=== PATIENT | female | born 1995 | race African-American/Black ===

== ENCOUNTER 2019-04-12 14:14 | Emergency (ER) | payer OTHER ==
[~2019-04-12] VITALS: Ht 167.6 cm; Wt 73.6 kg
[2019-04-12] MEDS ORDERED: NS 1,000 ML IV ONE (15:15)
[2019-04-12 15:29] LABS: BASO # 0.1 10^3/uL (0.0-0.2); BASO % 0.6 % (0.0-1.0); EOS # 0.1 10^3/uL (0.0-0.5); EOS % 0.6 % (0.0-3.0); HEMATOCRIT 40.5 % (36.0-47.0); HEMOGLOBIN 13.2 g/dl (12.0-15.5); LYMPH # 2.3 10^3/uL (1.5-5.0); LYMPH % 27.2 % (24.0-44.0); MEAN CORPUSCULAR HEMOGLOBIN 28.9 pg (27.0-33.0); MEAN CORPUSCULAR HGB CONC 32.6 g/dl (32.0-36.5); MEAN CORPUSCULAR VOLUME 88.8 fl (80.0-96.0); MONO # 0.5 10^3/uL (0.0-0.8); MONO % 5.6 % (0.0-5.0); NEUTROPHILS # 5.6 10^3/uL (1.5-8.5); NEUTROPHILS % 65.8 % (36.0-66.0); PLATELET COUNT, AUTOMATED 296 10^3/uL (150-450); RED BLOOD COUNT 4.56 10^6/uL (4.00-5.40); WHITE BLOOD COUNT 8.5 10^3/uL (4.0-10.0)
[2019-04-12] MEDS ORDERED: KETOROLAC 30 MG/ML VIAL (J1885) IV ONE (15:45)
--- NOTE | 2019-04-12 15:46 | REP ---
Clinical: Shortness of breath and left-sided chest pain . Comparison: None . Technique: PA and lateral. Findings: The mediastinum and cardiac silhouette are normal. The lung sears are clear and without acute consolidation, effusion, or pneumothorax. The skeletal structures are intact and normal. Impression: 1. No acute cardiopulmonary process. Electronically Signed by Isauro Montiel MD 04/12/2019 03:37 P
[2019-04-12 15:56] LABS: INFLUENZA A AMPLIFICATION NEGATIVE (NEGATIVE); INFLUENZA B AMPLIFICATION NEGATIVE (NEGATIVE)
[2019-04-12 15:58] LABS: BLOOD UREA NITROGEN 10 MG/DL (7-18); CALCIUM LEVEL 8.8 MG/DL (8.5-10.1); CARBON DIOXIDE LEVEL 27 MEQ/L (21-32); CHLORIDE LEVEL 106 MEQ/L (98-107); CREATININE FOR GFR 0.83 MG/DL (0.55-1.30); GLOMERULAR FILTRATION RATE > 60.0 (>60); GLUCOSE, FASTING 78 MG/DL (70-100); POTASSIUM SERUM 4.1 MEQ/L (3.5-5.1); SODIUM LEVEL 139 MEQ/L (136-145)
[2019-04-12] MEDS ORDERED: CLAR10CA3 PO (16:28)
[2019-04-12] MEDS ORDERED: FLON1SPR NARES (16:28)
[2019-04-12 17:06] VITALS: BP 122/68
== END 2019-04-12 17:07 | disposition home or self-care (01) ==
LOC: M ED 14:14
DX: J30.9 Allergic rhinitis, unspecified (principal); B34.9 Viral infection, unspecified
CPT/HCPCS: 71046; 80048; 84702; 85025; 87502; 96361; 96374; 99284; J1885

== ENCOUNTER 2019-05-14 17:40 | Emergency (ER) | payer OTHER ==
[~2019-05-14] VITALS: Ht 167.6 cm; Wt 74.5 kg
[~2019-05-14 17:40] MED LIST: CLAR10CA3 PO; FLON1SPR NARES
[2019-05-14 18:41] LABS: BASO # 0.1 10^3/uL (0.0-0.2); BASO % 0.7 % (0.0-1.0); EOS # 0.3 10^3/uL (0.0-0.5); EOS % 3.4 % (0.0-3.0); HEMATOCRIT 39.9 % (36.0-47.0); HEMOGLOBIN 13.4 g/dl (12.0-15.5); LYMPH # 2.6 10^3/uL (1.5-5.0); LYMPH % 31.8 % (24.0-44.0); MEAN CORPUSCULAR HEMOGLOBIN 29.4 pg (27.0-33.0); MEAN CORPUSCULAR HGB CONC 33.6 g/dl (32.0-36.5); MEAN CORPUSCULAR VOLUME 87.5 fl (80.0-96.0); MONO # 0.4 10^3/uL (0.0-0.8); MONO % 5.3 % (0.0-5.0); NEUTROPHILS # 4.8 10^3/uL (1.5-8.5); NEUTROPHILS % 58.7 % (36.0-66.0); PLATELET COUNT, AUTOMATED 333 10^3/uL (150-450); RED BLOOD COUNT 4.56 10^6/uL (4.00-5.40); WHITE BLOOD COUNT 8.3 10^3/uL (4.0-10.0)
[2019-05-14 19:12] LABS: ALBUMIN 3.6 GM/DL (3.2-5.2); ALT/SGPT 18 U/L (12-78); BILIRUBIN,DIRECT < 0.1 MG/DL (0.0-0.2); BILIRUBIN,TOTAL 0.2 MG/DL (0.2-1.0); BLOOD UREA NITROGEN 14 MG/DL (7-18); CALCIUM LEVEL 9.3 MG/DL (8.5-10.1); CARBON DIOXIDE LEVEL 28 MEQ/L (21-32); CHLORIDE LEVEL 103 MEQ/L (98-107); CREATININE FOR GFR 0.93 MG/DL (0.55-1.30); GLOMERULAR FILTRATION RATE > 60.0 (>60); GLUCOSE, FASTING 89 MG/DL (70-100); LIPASE 89 U/L (73-393); POTASSIUM SERUM 4.1 MEQ/L (3.5-5.1); SODIUM LEVEL 137 MEQ/L (136-145); TOTAL PROTEIN 7.7 GM/DL (6.4-8.2)
[2019-05-14 19:21] LABS: HCG, SERUM QUALITATIVE NEGATIVE (NEGATIVE)
[2019-05-14] MEDS ORDERED: CVS400CA PO (20:46)
[2019-05-14] MEDS ORDERED: ZOFR4TAB16 PO (20:51)
[2019-05-14 21:04] VITALS: BP 115/56
== END 2019-05-14 21:04 | disposition home or self-care (01) ==
LOC: M ED 17:40
DX: N94.4 Primary dysmenorrhea (principal); Z32.02 Encounter for pregnancy test, result negative; Z79.899 Other long term (current) drug therapy

== ENCOUNTER 2019-06-27 22:15 | Emergency (ER) | payer OTHER ==
[~2019-06-27] VITALS: Ht 167.6 cm; Wt 80.6 kg
[~2019-06-27 22:15] MED LIST changes: +CVS400CA PO; +ZOFR4TAB16 PO
[2019-06-28] MEDS ORDERED: LIDOCAINE 5% (LIDODERM) PATCH TD ONE
[2019-06-28] MEDS ORDERED: ACETAMINOPHEN 500 MG TAB PO ONE
[2019-06-28 00:11] LABS: BASO % 0.4 % (0.0-1.0); EOS # 0.2 10^3/uL (0.0-0.5); EOS % 2.1 % (0.0-3.0); HEMATOCRIT 41.1 % (36.0-47.0); LYMPH # 2.6 10^3/uL (1.5-5.0); LYMPH % 37.7 % (24.0-44.0); MEAN CORPUSCULAR HEMOGLOBIN 27.6 pg (27.0-33.0); MEAN CORPUSCULAR HGB CONC 31.6 g/dl (32.0-36.5); MEAN CORPUSCULAR VOLUME 87.3 fl (80.0-96.0); MONO # 0.4 10^3/uL (0.0-0.8); MONO % 6.2 % (0.0-5.0); NEUTROPHILS # 3.7 10^3/uL (1.5-8.5); NEUTROPHILS % 52.9 % (36.0-66.0); PLATELET COUNT, AUTOMATED 274 10^3/uL (150-450); RED BLOOD COUNT 4.71 10^6/uL (4.00-5.40)
[2019-06-28 00:36] LABS: ERYTHROCYTE SEDIMENTATION RATE 10 mm/hr (0-20)
[2019-06-28 01:09] VITALS: BP 129/60
[2019-06-28] MEDS ORDERED: **NOTE PATIENT COMMENT** MISC XX ONE (12:00)
== END 2019-06-28 01:10 | disposition home or self-care (01) ==
LOC: M ED 22:15
DX: G89.29 Other chronic pain (principal); M54.5 Low back pain; M25.551 Pain in right hip; M25.552 Pain in left hip; Z87.81 Personal history of (healed) traumatic fracture; Z79.899 Other long term (current) drug therapy

== ENCOUNTER 2019-07-09 10:38 | Emergency (ER) | payer OTHER ==
[~2019-07-09] VITALS: Ht 167.6 cm; Wt 88.7 kg
[2019-07-09 10:39] VITALS: BP 131/71
[2019-07-09] MEDS ORDERED: DESO0.0557 TOP (11:24)
[2019-07-09] MEDS ORDERED: ACET-839 PO (11:24)
[2019-07-09] MEDS ORDERED: CALCCHW19 PO (11:24)
[2019-07-09] MEDS ORDERED: MOBI4TAB PO (12:05)
[2019-07-09] MEDS ORDERED: ROBA750T4 PO (12:05)
[2019-07-09] MEDS ORDERED: MELOXICAM (MOBIC) 7.5 MG TAB PO ONE (12:15)
[2019-07-09] MEDS ORDERED: ACETAMINOPHEN TAB 650MG DOSE (2X325MG) PO ONE (12:15)
[2019-07-10] MEDS ORDERED: MELOXICAM (MOBIC) 7.5 MG TAB PO SCH (09:00)
== END 2019-07-09 12:40 | disposition home or self-care (01) ==
LOC: M ED 10:38
DX: M54.5 Low back pain (principal); M19.90 Unspecified osteoarthritis, unspecified site; Z79.899 Other long term (current) drug therapy

== ENCOUNTER 2019-07-24 07:53 | Emergency (ER) | payer OTHER ==
[~2019-07-24] VITALS: Ht 167.6 cm; Wt 85.3 kg
[~2019-07-24 07:53] MED LIST changes: +ACET-839 PO; +CALCCHW19 PO; +DESO0.0557 TOP; +MOBI4TAB PO; +ROBA750T4 PO
[2019-07-24 10:14] LABS: BASO % 0.5 % (0.0-1.0); EOS # 0.1 10^3/uL (0.0-0.5); EOS % 1.7 % (0.0-3.0); HEMATOCRIT 41.2 % (36.0-47.0); HEMOGLOBIN 13.5 g/dl (12.0-15.5); LYMPH # 2.2 10^3/uL (1.5-5.0); LYMPH % 29.1 % (24.0-44.0); MEAN CORPUSCULAR HEMOGLOBIN 28.6 pg (27.0-33.0); MEAN CORPUSCULAR HGB CONC 32.8 g/dl (32.0-36.5); MEAN CORPUSCULAR VOLUME 87.3 fl (80.0-96.0); MONO # 0.4 10^3/uL (0.0-0.8); MONO % 5.7 % (0.0-5.0); NEUTROPHILS # 4.7 10^3/uL (1.5-8.5); NEUTROPHILS % 62.7 % (36.0-66.0); PLATELET COUNT, AUTOMATED 279 10^3/uL (150-450); RED BLOOD COUNT 4.72 10^6/uL (4.00-5.40); WHITE BLOOD COUNT 7.5 10^3/uL (4.0-10.0)
[2019-07-24 10:27] LABS: INR 1.08; PROTHROMBIN TIME 13.7 SECONDS (11.8-14.0)
[2019-07-24 10:28] LABS: PARTIAL THROMBOPLASTIN TIME 28.8 SECONDS (25.0-38.4)
[2019-07-24 10:30] LABS: D-DIMER QUANT 481.8 ng/ml (<500)
[2019-07-24 10:44] LABS: BLOOD UREA NITROGEN 12 MG/DL (7-18); CALCIUM LEVEL 8.8 MG/DL (8.5-10.1); CARBON DIOXIDE LEVEL 28 MEQ/L (21-32); CHLORIDE LEVEL 106 MEQ/L (98-107); CK-MB VALUE MASS 1.6 NG/ML (<3.6); CPK CREATINE PHOSPHOKINASE 231 U/L (26-192); CREATININE FOR GFR 0.73 MG/DL (0.55-1.30); GLOMERULAR FILTRATION RATE > 60.0 (>60); GLUCOSE, FASTING 105 MG/DL (70-100); MB/CK RELATIVE INDEX 0.69 (< OR =4); POTASSIUM SERUM 3.9 MEQ/L (3.5-5.1); SODIUM LEVEL 140 MEQ/L (136-145); TROPONIN I < 0.02 NG/ML (< 0.10)
[2019-07-24 10:48] LABS: ERYTHROCYTE SEDIMENTATION RATE 9 mm/hr (0-20)
--- NOTE | 2019-07-24 11:07 | REP ---
Clinical: Trauma. Technique: Frontal view of the chest with 4 views of the left hemithorax. Findings: Frontal view of the chest demonstrates no acute cardiopulmonary process. Multiple views of the left hemithorax demonstrates no obvious acute rib fracture or pathology. Impression: Normal left rib series Electronically Signed by Isauro Montiel MD 07/24/2019 10:58 A
[2019-07-24 11:28] LABS: C REACTIVE PROTEIN QUANTITATIV < 0.30 MG/DL (0.00-0.30)
[2019-07-24 11:56] VITALS: BP 112/62
--- NOTE | 2019-07-24 20:12 | ECGEPIP ---
[facility] - ED Test Date: 2019-07-24 Pat Name: DEISY ALEMAN Department: Room: - Gender: Female Director [employer]: [employer]u : [id number] Requested By: Betty Weller [facility] Order Number: [id number] Reading MD: Evita Ortiz Measurements Intervals [place] Rate: 68 P: 27 TN: 140 QRS: 22 QRSD: 81 T: 1 QT: 374 QTc: 398 Interpretive Statements SINUS RHYTHM WITH SINUS ARRHYTHMIA NONSPECIFIC T-WAVE ABNORMALITY NO PRIOR Electronically Signed on 07-24-2019 20:11:56 EST by Evita Ortiz
== END 2019-07-24 11:59 | disposition home or self-care (01) ==
LOC: M ED 07:53
DX: R07.89 Other chest pain (principal); G89.29 Other chronic pain; M54.9 Dorsalgia, unspecified; Z79.899 Other long term (current) drug therapy

== ENCOUNTER 2019-08-19 19:32 | Emergency (ER) | payer OTHER ==
[~2019-08-19] VITALS: Ht 167.6 cm; Wt 80.0 kg
[2019-08-19] MEDS ORDERED: MELA3TAB62 PO (19:42)
[2019-08-19] MEDS ORDERED: PENICILLIN V POTASSIUM 500 MG TAB PO ONE (20:30)
[2019-08-19] MEDS ORDERED: PENI500T PO (20:39)
[2019-08-19 20:42] VITALS: BP 110/65
[2019-08-19 20:59] LABS: INFLUENZA A AMPLIFICATION NEGATIVE (NEGATIVE); INFLUENZA B AMPLIFICATION NEGATIVE (NEGATIVE)
== END 2019-08-19 20:51 | disposition home or self-care (01) ==
LOC: M ED 19:32
DX: J02.0 Streptococcal pharyngitis (principal); Z79.899 Other long term (current) drug therapy

== ENCOUNTER → 2019-12-20 | Outpatient (CLI) | payer OTHER ==
[~2019-12-20] MED LIST changes: +MELA3TAB30 PO; +PENI500T PO
--- NOTE | 2019-12-21 11:34 | REP ---
REASON: anatomy. Multiple ultrasonographic images of the gravid uterus show a single living intrauterine gestation in the cephalic presentation. Doppler interrogation of the heart shows a heart rate of 139 beats per minute. The placenta is anterior and not low lying. The subjective amniotic fluid volume is within normal limits. The cervix measures 3.5 cm in length and is closed. Evaluation of the maternal adnexal spaces shows no gross abnormalities. BPD 4.6 cm = 19 weeks 6 days HC 17.1 cm = 19 weeks 5 days AC 14.4 cm = 19 weeks 5 days FL 3.5 cm = 21 weeks 0 days The estimated weight is 341 grams, which is at the 59th percentile for a 19 week 6 day gestational age. Due to the poor technical parameters of the examination, I cannot assess the anatomy, and a repeat examination is recommended. IMPRESSION: Single living intrauterine gestation, as described above, and an estimated gestational age of 19 weeks 6 days via composite criteria and an estimated date of delivery of 05/09/2020 by today's exam. Repeat examination is recommended. Electronically Signed by Raul Engel DO 12/22/2019 08:32 A
== END ==
LOC: M LRY 09:44
PROVIDERS: ATTEND Registered Nurse Maternal Newborn
DX: Z34.82 Encounter for supervision of other normal pregnancy, second trimester (principal); Z3A.19 19 weeks gestation of pregnancy